=== PATIENT | male | born 1955 | race African-American/Black ===

== ENCOUNTER 2022-11-14 23:07 | Inpatient (IN) | payer OTHER, MEDICARE ==
[~2022-11-14] VITALS: Ht 177.8 cm; Wt 104.3 kg
--- NOTE | 2022-11-14 23:20 | NUR ---
BULK COOLER INSTALLER AT BEDSIDE
--- NOTE | 2022-11-14 23:20 | NUR ---
[id number] FROM HOME C/O FLU SYMPTOMS. PT IS AAO X 4, IN NO ACUTE DISTRESS, STABLE ON ROOM AIR. PATIENT STATED HE TESTED POSITIVE FOR COVID A WEEK AGO. PATIENT ATTACHED TO MONITOR AND PULSE OX. PT KEPT ON SEMI GONSALEZ'S. WILL CONT TO MONITOR. AWAITING MD ORDERS.
[2022-11-14] MEDS ORDERED: IV NS 0.9% 1,000 ML BAG IV ONE (23:30)
--- NOTE | 2022-11-14 23:40 | NUR ---
IV LINE STARTED AT L HAND 20G
--- NOTE | 2022-11-14 23:56 | NUR ---
HOTEL FRONT DESK AGENT AT BEDSIDE FOR BLOOD DRAW
[2022-11-14 23:58] LABS: BASOPHILS % (AUTO) 0.2 % (0.0-2.0); EOSINOPHILS % (AUTO) 0.1 % (0.0-6.0); HEMATOCRIT 44 % (39-51); HEMOGLOBIN 14.6 g/dL (13.5-17.5); LYMPHOCYTES # (AUTO) 0.6 K/uL (0.8-4.8); LYMPHOCYTES % (AUTO) 10.9 % (20.0-44.0); MEAN CORPUSCULAR HGB CONC 33 g/dl (31.0-36.0); MEAN CORPUSCULAR VOLUME 86 fL (80-96); MONOCYTES # (AUTO) 0.6 K/uL (0.1-1.30); MONOCYTES % (AUTO) 9.7 % (2.0-12.0); NEUTROPHILS # (AUTO) 4.6 K/uL (1.8-8.9); NEUTROPHILS % (AUTO) 79.1 % (43.0-81.0); PLATELET COUNT (AUTO) 184 K/uL (150-450); RED BLOOD CELL COUNT(AUTO) 5.14 MIL/uL (4.5-6.0); WHITE BLOOD COUNT (AUTO) 5.8 K/uL (4.3-11.0)
[2022-11-15 00:07] LABS: CALCIUM, SERUM 8.9 mg/dL (8.5-10.1); CARBON DIOXIDE 24 mmol/L (21-32); CHLORIDE 100 mmol/L (98-107); CREATININE 1.5 mg/dL (0.6-1.3); GLUCOSE 321 mg/dL (74-106); POTASSIUM 3.9 mmol/L (3.5-5.1); SODIUM SERUM 134 mmol/L (136-145); UREA NITROGEN, BLOOD 9 mg/dL (7-18)
--- NOTE | 2022-11-15 00:07 | NUR ---
FLU SWAB DONE, SENT TO LAB. PATIENT TAKEN TO CT
[2022-11-15 00:14] LABS: ALANINE AMINOTRANSFERASE 27 U/L (12-78); ALBUMIN 3.8 g/dL (3.4-5.0); ALKALINE PHOSPHATASE 129 U/L (46-116); ASPARTATE AMINOTRANSFERASE 27 U/L (15-37); BILIRUBIN,DIRECT 0.2 mg/dL (0.0-0.2); BILIRUBIN,TOTAL 0.5 mg/dL (0.2-1.0); LIPASE 138 U/L (73-393); TOTAL PROTEIN, SERUM 7.9 g/dL (6.4-8.2)
--- NOTE | 2022-11-15 01:12 | NUR ---
COVID ANTIGEN SWAB COLLECTED AND SENT TO LAB
--- NOTE | 2022-11-15 01:38 | NUR ---
URINE COLLECTED AND SENT TO LAB
[2022-11-15 01:56] LABS: BILIRUBIN,URINE NEGATIVE (NEGATIVE); COLOR,URINE YELLOW (YELLOW); LEUKOCYTE ESTERASE ,URINE NEGATIVE (NEGATIVE); NITRITE, URINE NEGATIVE (NEGATIVE); PH,URINE 5.5 (5.0-8.0); PROTEIN,URINE NEGATIVE (NEGATIVE); UGLUCOSE 3+ mg/dL (NEGATIVE); UROBILINOGEN,URINE 0.2 EU/dL (0.2)
[2022-11-15 02:06] LABS: BACTERIA,URINE Rare /HPF (None Seen); RBC,URINE 0-2 /HPF (0-2); SQUAMOUS EPITHELIAL CELL,UR Few /HPF (None Seen); WBC,URINE 0-2 /HPF (0-3)
--- NOTE | 2022-11-15 04:05 | NUR ---
REPORT GIVEN TO SHAN CALDERON FOR LUCERTIA
--- NOTE | 2022-11-15 04:11 | NUR ---
PT TRANSFERRING TO [facility] VIA ACLS PROTOCOL. VSS. ALL BELONGINGS WITH PT.
--- NOTE | 2022-11-15 04:49 | NUR ---
RN OPENING NOTE PT RECEIVED FROM IRENE. A&OX4. RESPIRATIONS EVEN AND UNLABORED ON RA. DENIES SOB. C/O GENERALIZED WEAKNESS AND FEELING "HOT". SKIN IS HOT AND DRY. TEMP OF 100.2. COOLING MEASURES IN PLACE. SPEECH IS CLEAR. IV L HAND 20 G INTACT. NO FLUIDS RUNNING. PT PLACED ON FLYING II INSTRUCTOR. NO ACUTE SIGNS OF DISTRESS. DENIES OTHER NEEDS AT THIS TIME. SAFETY PRECAUTIONS IN PLACE. BED LOCKED AND AT LOWEST LEVEL WITH 2 RAILS UP. CALL LIGHT WITHIN REACH. Addendum: 11/15/22 at 0455 by SHAN PARKER RN WALLET AND MONEY WAS PLACED IN SAFE LOCATED IN NURSING OFFICE.
--- NOTE | 2022-11-15 04:53 | NUR ---
RN NOTE PT HAS GIVEN PERMISSION TO RELEASE INFO TO NIECE: ANAND SCHMITZ
[2022-11-15 05:00] VITALS: BP 124/63
[2022-11-15] MEDS ORDERED: ONDANSETRON HCL/PF 4 MG/2 ML VIAL IVP PRN (05:00)
[2022-11-15] MEDS ORDERED: DEXTROSE 50%-WATER 50 ML DISP.SYRIN IV PRN (05:00)
[2022-11-15] MEDS: ACETAMINOPHEN 325 MG TABLET PO PRN (05:16)
[2022-11-15] MEDS: ENOXAPARIN SODIUM 40 MG/0.4 ML DISP.SYRIN SQ SCH (05:17)
[2022-11-15] MEDS: IV NS 0.9% 1,000 ML IV PRN ×2 (05:18→19:28)
--- NOTE | 2022-11-15 06:41 | NUR ---
RN CLOSING NOTE PT SLEEPING BUT EASILY AROUSABLE. SKIN IS HOT AND DRY. RESPIRATIONS EVEN AND UNLABORED ON RA WITH O2 SAT OF 98%. DENIES SOB. L HAND 20G IV INTACT AND RUNNING NS AT 75 ML/HR. PT WAS GIVEN TYLENOL 650 MG PO AND COOLING MEASURES FOR ELEVATED TEMP OF 100.2. NO SIGNS OF DISTRESS. BED LOCKED AND AT LOWEST LEVEL WITH 2 RAILS UP. CALL LIGHT WITHIN REACH.
[2022-11-15 06:44] LABS: BASOPHILS % (AUTO) 0.2 % (0.0-2.0); HEMATOCRIT 40 % (39-51); HEMOGLOBIN 13.2 g/dL (13.5-17.5); LYMPHOCYTES # (AUTO) 1.5 K/uL (0.8-4.8); LYMPHOCYTES % (AUTO) 29.8 % (20.0-44.0); MEAN CORPUSCULAR HGB CONC 33 g/dl (31.0-36.0); MEAN CORPUSCULAR VOLUME 84 fL (80-96); MONOCYTES # (AUTO) 0.5 K/uL (0.1-1.30); MONOCYTES % (AUTO) 10.7 % (2.0-12.0); NEUTROPHILS # (AUTO) 2.9 K/uL (1.8-8.9); NEUTROPHILS % (AUTO) 59.3 % (43.0-81.0); PLATELET COUNT (AUTO) 180 K/uL (150-450); RED BLOOD CELL COUNT(AUTO) 4.77 MIL/uL (4.5-6.0); WHITE BLOOD COUNT (AUTO) 4.9 K/uL (4.3-11.0)
[2022-11-15 07:10] LABS: CALCIUM, SERUM 8.6 mg/dL (8.5-10.1); CREATININE 1.3 mg/dL (0.6-1.3); PHOSPHORUS 2.9 mg/dL (2.5-4.9); POTASSIUM 3.8 mmol/L (3.5-5.1)
[2022-11-15] MEDS: BLOOD SUGAR DIAGNOSTIC 1 EACH STRIP IN SCH ×4 (07:32→21:21)
--- NOTE | 2022-11-15 07:50 | NUR ---
RN OPENING NOTE PT ALERT AND ORIENTED X4. NO COMPLAINTS OF PAIN OR DISCOMFORT NOTED AT THIS TIME. PT HAS IV ON LEFT HAND 20 GUAGE. IV INTACT, PATENT AND FLUSHING WELL. PT ON TELE MONITOR CURRENTLY SR 70. PT ON ISOLATION PRECAUTIONS DUE TO INFLUENZA A. ALL SAFETY MEASURES IN PLACE. CALL LIGHT WITHIN REACH. BED LOCKED AT LOWES T POSITION.SIDE RAILS UP X2. BED ALARM ON
[2022-11-15 08:00] VITALS: BP 127/67
[2022-11-15] MEDS: INSULIN REGULAR, HUMAN 100 UNIT/ML 3 ML VIAL SQ PRN ×4 (09:35→21:19)
[2022-11-15 09:43] LABS: IRON, SERUM 16 ug/dl (50-175); TOTAL IRON BINDING CAPACITY 261 ug/dl (250-450)
[2022-11-15 10:28] LABS: FERRITIN 374 ng/mL (8-388)
[2022-11-15] MEDS ORDERED: METF-440 PO (11:50)
[2022-11-15 12:00] VITALS: BP 157/77
--- NOTE | 2022-11-15 13:34 | NUR ---
rn note spoke with luzmaria hurtado, pt has poor appetite. recommend nutritional supplement Glucerna/ Ensure, pt does not like it. Addendum: 11/15/22 at 1337 by LONNIE MANJARREZ RN spoke with luzmaria hurtado continue to monitor for psych issues.
[2022-11-15] MEDS: GUAIFENESIN/CODEINE 10 ML UDC PO PRN (15:53)
[2022-11-15 16:00] VITALS: BP 148/73
--- NOTE | 2022-11-15 17:57 | NUR ---
rn note pt has poor appetite. 1729 accucheck 188. encourage jello intake and adminstered 3 units of insulin patient temperature 100.3 implemented cooling measures, rechecked at this time 99.3 pt refuses tylenol at this time. Addendum: 11/15/22 at 1759 by LONNIE MANJARREZ RN offered patient sandwiches and snacks but refuses at this time
--- NOTE | 2022-11-15 19:00 | NUR ---
rn note offered tylenol again to patient. refused and prefers to wait for shift foreman rn to adminster. endorsed to shift foreman rn
--- NOTE | 2022-11-15 19:29 | NUR ---
RN CLOSING NOTE PT ALERT AND ORIENTED X4. NO COMPLAINTS OF PAIN OR DISCOMFORT NOTED AT THIS TIME. PT HAS IV ON LEFT HAND 20 GUAGE. IV INTACT, PATENT AND FLUSHING WELL. PT ON TELE MONITOR CURRENTLY SR 74. AV PACING.P[T HAS PACEMAKER. PT ON ISOLATION PRECAUTIONS DUE TO INFLUENZA A. ALL SAFETY MEASURES IN PLACE. CALL LIGHT WITHIN REACH. BED LOCKED AT LOWEST POSITION.SIDE RAILS UP X2. BED ALARM ON.ENDORSED TO COMBER TENDER RN FOR CONTiUITY OF CARE
--- NOTE | 2022-11-15 19:56 | NUR ---
RN OPENING NOTE PATIENT ASLEEP IN BED. A/OX4. NO S/S OF DISTRESS, BREATHING WITHOUT DIFFICULTY ON ROOM AIR. L-HAND #20 INTACT AND PATENT W/ NS 75ML/HR. TELE READS SR 69. SAFETY MEASURES IN PLACE: BED LOCKED IN PLACE AND AT LOWEST POSITION, RAILS UP X2, CALL SCOTT WITHIN REACH, WILL CONTINUE TO MONITOR PATIENT.
[2022-11-15 20:00] VITALS: BP 134/81
[2022-11-16] VITALS: BP 131/76
[2022-11-16] MEDS: ACETAMINOPHEN 325 MG TABLET PO PRN ×2 (03:12→13:25)
[2022-11-16] MEDS: GUAIFENESIN/CODEINE 10 ML UDC PO PRN ×2 (03:12→13:25)
--- NOTE | 2022-11-16 03:44 | NUR ---
RN NOTE PATIENT REMOVED HIS IV ACCESS FROM HIS LEFT HAND. PRESSURE DRESSING APPLIED. ALL PARTS OF IV ACCESS - INCLUDING CATH - PRESENT. PATIENT EDUCATED ON THE REASON FOR HAVING IV ACCESS WHILE BEING PRESENT AT THIS HOSPITAL. NEW IV ACCESS SUCCESSFULLY OBTAINED. LAC #20. IVF RESUMED. PATIENT STABLE; WILL CONTINUE TO MONITOR.
[2022-11-16 04:57] VITALS: BP 130/78
[2022-11-16] MEDS: IV NS 0.9% 1,000 ML IV PRN (06:24)
--- NOTE | 2022-11-16 06:56 | NUR ---
RN CLOSING NOTE PATIENT ASLEEP IN BED. A/OX4. NO S/S/ OF DISTRESS, BREATHING WITHOUT DIFFICULTY ON ROOM AIR. LAC #20 INTACT AND PATENT W/ NS 75ML/HR. TELE READS SR 65. SAFETY MEASURES IN PLACE: BED LOCKED AND AT LOWEST POSITION, RAILS UP X2, CALL SCOTT WITHIN REACH. WILL ENDORSE TO NEXT SHIFT FOR LUCRETIA.
[2022-11-16 08:00] VITALS: BP 124/71
--- NOTE | 2022-11-16 08:03 | NUR ---
RN OPENING NOTE RECEIVED PATIENT IN BED, AO X 4. ABLE TO RESPONDS ALL STIMULI. RESPIRATORY EVEN AND UNLABORED IN ROOM AIR. IN NO ACUTE DISTRESS OBSERVED. SKIN IS WARM TO TOUCH, KEEP CLEAN/DRY. KEPT ELEVATED HOB FOR ASPIRATION PRECAUTION/ENSURE AIRWAY, AND LOWEST BED POSITIONED. BED ALARM IS ON AT ALL THE TIME FOR SAFETY. CALL LIGHT WITHIN REACH, WILL CONTINUE TO MONITOR
[2022-11-16] MEDS: ENOXAPARIN SODIUM 40 MG/0.4 ML DISP.SYRIN SQ SCH (08:57)
[2022-11-16] MEDS: BLOOD SUGAR DIAGNOSTIC 1 EACH STRIP IN SCH ×2 (08:58→11:37)
[2022-11-16] MEDS: INSULIN REGULAR, HUMAN 100 UNIT/ML 3 ML VIAL SQ PRN (11:39)
[2022-11-16] MEDS ORDERED: GUAI10SY3 PO (14:55)
--- NOTE | 2022-11-16 15:10 | NUR ---
PATIENT D/C TO HOME, GIVEN DISCHARGE INSTRUCTION INCLUDE PIPE FITTER HELPER NEW MEDICATIONS FROM PHARMACY. WALLET/JACOBS RETURNED TO THE PATIENT AND PATIENT SIGNED ON BELONGINGS FORM. PATIENT IN STABLE CONDITION IN ROOM ROOM AIR, IN NO RESPIRATORY DISTRESS OBSERVED.
== END 2022-11-16 15:16 | disposition home or self-care (01) | DRG 683 ==
LOC: ER 23:10 → TELE1 11-15 03:25 → MEDSG1 11-16 08:43
PROVIDERS: ADMIT Nurse Practitioner Acute Care; ATTEND Nurse Practitioner Acute Care
DX: N17.9 Acute kidney failure, unspecified (principal); E87.1 Hypo-osmolality and hyponatremia; J10.1 Influenza due to other identified influenza virus with other respiratory manifestations; R94.31 Abnormal electrocardiogram [ECG] [EKG]; Z20.822 Contact with and (suspected) exposure to COVID-19; Z86.16 Personal history of COVID-19; E11.65 Type 2 diabetes mellitus with hyperglycemia; E78.5 Hyperlipidemia, unspecified; I10 Essential (primary) hypertension; R32 Unspecified urinary incontinence; Z88.0 Allergy status to penicillin; R10.32 Left lower quadrant pain
CPT/HCPCS: 36415; 71045-TC; 80048-TC; 80061-TC; 80076-TC; 81001; 82728-TC; 82962-TC; 83540-TC; 83690-TC; 83735-TC; 84100-TC; 84484-TC; 85025-TC; 87081-TC; 93307-TC; 97116-TC; 97530-TC; C9803; G0378; J1650; J1815; J7030